=== PATIENT | female | born 1965 ===

== ENCOUNTER 2016-10-06 11:37 | Emergency (ER) | payer OTHER ==
[2016-10-06 11:54] VITALS: BMI 34.6
[2016-10-06 11:56] VITALS: BP 147/94; PULSE 77; RESP 16; TEMP 98.2; O2SAT 100
[2016-10-06] MEDS ORDERED: DiphenhydrAMINE 50 mg/ml Inj IVP STA (12:02)
--- NOTE | 2016-10-06 12:27 | ED PDOC ---
Arrival/HPI - General Chief Complaint: Headache Time Seen by Provider: 10/06/16 11:57 Historian: Patient - History of Present Illness Narrative History of Present Illness (Text): 10/06/16 12:25 50 year old female presents to the emergency department with chronic headache for 2 weeks. Patient states she has had these for the past 20 years but reports this headache has been for the past 2 weeks. has not seen pmd. No nausea, vomiting, or other complaints PMD: None 10/06/16 13:39 Time/Duration: > week Symptom Onset: Gradual Symptom Course: Unchanged Modifying Factors (Text): None Associated Symptoms (Text): None Past Medical History - Provider Review Nursing Documentation Reviewed: Yes - Psychiatric Hx Substance Use: No - Surgical History Other/Comment: Patient had a surgery, but does not remember what surgery. - Anesthesia Hx Anesthesia: No Family/Social History - Physician Review Nursing Documentation Reviewed: Yes Family/Social History: Unknown Family HX Smoking Status: Never Smoked Hx Alcohol Use: No Hx Substance Use: No Allergies/Home Meds Allergies/Adverse Reactions: Allergies No Known Allergies Allergy (Verified 10/06/16 11:53) Review of Systems - Physician Review All systems were reviewed & negative as marked: Yes - Review of Systems Respiratory: absent: SOB Cardiovascular: absent: Chest Pain Gastrointestinal: absent: Nausea, Vomiting Neurological: Headache Physical Exam Vital Signs Reviewed: Yes Vital Signs Temp Pulse Resp BP Pulse Ox 10/06/16 11:56 98.2 F 77 16 147/94 H 100 Temperature: Afebrile Blood Pressure: Normal Pulse: Regular Respiratory Rate: Normal Appearance: Positive for: Well-Appearing, Non-Toxic, Comfortable Pain Distress: None Mental Status: Positive for: Alert and Oriented X 3 - Systems Exam Head: Present: Atraumatic, Normocephalic Pupils: Present: PERRL Extroacular Muscles: Present: EOMI Conjunctiva: Present: Normal Mouth: Present: Moist Mucous Membranes Neck: Present: Normal Range of Motion Respiratory/Chest: Present: Clear to Auscultation, Good Air Exchange. No: Respiratory Distress, Accessory Muscle Use Cardiovascular: Present: Regular Rate and Rhythm, Normal S1, S2. No: Murmurs Abdomen: Present: Normal Bowel Sounds. No: Tenderness, Distention, Peritoneal Signs Back: Present: Normal Inspection Upper Extremity: Present: Normal Inspection. No: Cyanosis, Edema Lower Extremity: Present: Normal Inspection. No: Edema Neurological: Present: GCS=15, CN II-XII Intact, Speech Normal, Motor Func Grossly Intact, Normal Sensory Function, Normal Cerebellar Funct, Norm Deep Tendon Reflexes, Normal 2Pt Descrimination Skin: Present: Warm, Dry, Normal Color. No: Rashes Psychiatric: Present: Alert, Oriented x 3, Normal Insight, Normal Concentration Medical Decision Making ED Course and Treatment: Impression: 50 year old female presents to the emergency department with chronic headache for 2 weeks. Differential Diagnosis include but are not limited to: Plan: -- Benadryl, Reglan -- Labs -- Reassess and disposition Progress Notes: 10/06/16 12:56 Patient states she feels better, asking for discharge 10/06/16 13:40 no temporal ttp, no thunderclap features. neuro intact. steady gait. stable for d/c. - Lab Interpretations Lab Results: 10/06/16 12:20 10/06/16 12:20 Lab Results 10/06/16 12:20: Sodium 142, Potassium 4.1, Chloride 101, Carbon Dioxide 30, Anion Gap 15, BUN 17, Creatinine 0.7, Est GFR ( Amer) > 60, Est GFR (Non- Af Amer) > 60, Random Glucose 80, Calcium 9.5, Total Bilirubin 0.5, AST 34, ALT 56, Alkaline Phosphatase 102, Total Protein 8.2, Albumin 4.5, Globulin 3.7, Albumin/Globulin Ratio 1.2 10/06/16 12:20: PT 10.0, INR 0.93, APTT 30.2 10/06/16 12:20: WBC 5.2, RBC 4.73, Hgb 13.9, Hct 39.7, MCV 83.9, MCH 29.4, MCHC 35.0, RDW 12.8, Plt Count 256, MPV 10.2, Gran % 52.9, Lymph % (Auto) 35.8 H, Noble % (Auto) 6.6 H, Eos % (Auto) 3.7, Baso % (Auto) 1.0, Gran # 2.74, Lymph # 1.9, Noble # 0.3, Eos # 0.2, Baso # 0.05 - Medication Orders Current Medication Orders: Discontinued Medications Diphenhydramine HCl (Benadryl) 25 mg IVP STAT STA Stop: 10/06/16 12:03 Last Admin: 10/06/16 12:20 Dose: 25 mg Metoclopramide HCl (Reglan) 10 mg IVP STAT STA Stop: 10/06/16 12:03 Last Admin: 10/06/16 12:20 Dose: 10 mg - Scribe Statement The provider has reviewed the documentation as recorded by the Mark Mcintosh Provider Sameeraibe Attestation: All medical record entries made by the Mark were at my direction and personally dictated by me. I have reviewed the chart and agree that the record accurately reflects my personal performance of the history, physical exam, medical decision making, and the department course for this patient. I have also personally directed, reviewed, and agree with the discharge instructions and disposition. Disposition/Present on Arrival - Present on Arrival Any Indicators Present on Arrival: No History of DVT/PE: No History of Uncontrolled Diabetes: No Urinary Catheter: No History of Decub. Ulcer: No History Surgical Site Infection Following: None - Disposition Have Diagnosis and Disposition been Completed?: Yes Diagnosis: Headache Disposition: HOME/ ROUTINE Disposition Time: 12:00 Patient Problems: Current Active Problems Problem Status Onset Headache Acute Condition: STABLE Discharge Instructions (ExitCare): Acute Headache (ED) Print Language: ALB[place] Additional Instructions: please see specialist return to er with worsening symptoms or concerns. Prescriptions: Acetaminophen/Butalbital/Caf [Fioricet] 1 tab PO Q8 PRN #20 tab PRN Reason: Headache Referrals: Rigoberto Crisostomo MD [Staff Provider] - Follow up with primary Jamarcus Crisostomo MD [Staff Provider] - Follow up with primary
[2016-10-06 12:32] LABS: ADD MANUAL DIFF? NO
[2016-10-06 12:37] LABS: BASO # 0.05 K/mm3 (0.0-2.0); EOS # 0.2 (0.0-0.7); EOS % 3.7 % (1.5-5.0); GRAN # 2.74 (1.4-6.5); GRAN % 52.9 % (50.0-68.0); HEMATOCRIT 39.7 % (36.0-48.0); LYMPH # 1.9 (1.2-3.4); LYMPH % 35.8 % (22.0-35.0); MEAN CELL VOLUME 83.9 fL (80.0-105.0); MEAN CORPUSCULAR HEMOGLOBIN 29.4 pg (25.0-35.0); MEAN PLATELET VOLUME 10.2 fl (7.0-11.0); MONO # 0.3 (0.1-0.6); MONO % 6.6 % (1.0-6.0); PLATELET COUNT 256 10^3/uL (120.0-450.0); RED CELL DISTRIBUTION WIDTH 12.8 % (11.5-14.5); WHITE BLOOD COUNT 5.2 10^3/ul (4.5-11.0)
[2016-10-06 12:48] LABS: ALB/GLOB RATIO 1.2 (1.1-1.8); ALKALINE PHOSPHATASE 102 U/L (38-133); ALT/SGPT 56 U/L (7-56); AST/SGOT 34 U/L (15-39); BILIRUBIN,TOTAL 0.5 mg/dL (0.2-1.3); BLOOD UREA NITROGEN 17 mg/dL (7-21); CALCIUM 9.5 mg/dL (8.4-10.5); CARBON DIOXIDE 30 mmol/L (21-33); CHLORIDE 101 mmol/L (98-107); GFR AFRICAN-AMERICAN > 60; GLUCOSE,RANDOM 80 mg/dL (70-110); INR 0.93 (0.93-1.08); PARTIAL THROMBOPLASTIN TIME 30.2 Seconds (23.7-30.8); POTASSIUM 4.1 mmol/L (3.6-5.0); SODIUM 142 mmol/L (132-148); TOTAL PROTEIN 8.2 g/dL (5.8-8.3)
== END 2016-10-06 13:30 | disposition home or self-care (01) ==
LOC: ED 11:37
DX: R51 Headache (principal)
CPT/HCPCS: 80053; 85025; 85610; 85730; 96374; 96375; 99285; J1200; J2765